=== PATIENT | female | born 1990 | race Caucasian/White ===

== ENCOUNTER 2020-06-22 05:25 | Emergency (ER) | payer OTHER, SELFPAY ==
[~2020-06-22] VITALS: Ht 154.9 cm; Wt 52.7 kg
[2020-06-22 05:28] VITALS: BP 118/71
[2020-06-22] MEDS ORDERED: TETRACAINE 0.5% OPHTH SOLN 4ML OS ONE (06:15)
[2020-06-22] MEDS ORDERED: FLUORESCEIN OPHTH 1 MG STRIP OS ONE (06:15)
[2020-06-22] MEDS ORDERED: POLYSOL OS (06:47)
== END 2020-06-22 07:02 | disposition home or self-care (01) ==
LOC: M ED 05:25
DX: S05.02XA Injury of conjunctiva and corneal abrasion without foreign body, left eye, initial encounter (principal); W50.4XXA Accidental scratch by another person, initial encounter; Y92.9 Unspecified place or not applicable; Y93.9 Activity, unspecified; Y99.9 Unspecified external cause status; F17.200 Nicotine dependence, unspecified, uncomplicated